=== PATIENT | male | born 1960 | race Caucasian/White ===

== ENCOUNTER 2016-12-16 11:50 | Inpatient (IN) | payer MEDICAID, OTHER ==
[~2016-12-16] VITALS: Ht 182.9 cm; Wt 67.7 kg
[2016-12-16 13:40] LABS: Basophils # (auto) 0.1 uL; Basophils % (auto) 0.5 % (0.0-2.0); DEFINITIVE VIEW TRANSMISSION; Eosinophils # (auto) 0 uL; Eosinophils % (auto) 0.2 % (0.0-7.0); Lymphocytes # (auto) 1.1 uL; Lymphocytes % (auto) 7.6 % (10.0-50.0); Mean Corpuscular Hemoglobin 33.4 pg (28.0-32.0); Mean Corpuscular Hgb Conc. 33.4 g/dL (32.0-36.0); Mean Corpuscular Volume 100.1 fL (80.0-100.0); Mean Platelet Volume 8.2 fL (7.4-10.4); Monocytes # (auto) 1.2 uL; Monocytes % (auto) 8.7 % (0.0-12.0); Neutrophils # (auto) 11.9 uL; Platelet Count (auto) 351 10^3/uL (140-450); Red Cell Distribution Width 13.9 % (11.6-16.0); SUSPECT VIEW TRANSMISSION; White Blood Cell 14.3 10^3/uL (4.4-10.8)
[2016-12-16 13:50] LABS: Albumin 2.9 g/dL (3.4-5.0); BUN/Creatinine Ratio 9.4; Bilirubin, Total 0.2 mg/dL (0.2-1.0); Calcium 8.1 mg/dL (8.5-10.1); Potassium 3.4 mmol/L (3.5-5.1); Total Protein 6.1 g/dL (6.4-8.2)
[2016-12-16 14:15] LABS: Hemoglobin 6.7 g/dL (13.5-17.5)
[2016-12-16 15:57] LABS: INR 0.98 (0.9-1.15); Partial Thromboplastin Time 23.5 sec (22.64-33.71); Prothrombin Time 10.1 sec (9.37-12.3)
[2016-12-16] MEDS: SODIUM CHLORIDE 0.9% 1,000 ML IV SCH ×2 (16:03→21:44)
[2016-12-16] MEDS ORDERED: MORPHINE SULF INJ 2 MG/ML SYRINGE 1ML IV PRN (16:15)
[2016-12-16] MEDS ORDERED: PANTOPRAZOLE SODIUM 40 MG/10 ML VIAL IV ONE (16:15)
[2016-12-16] MEDS ORDERED: NITROGLYCERIN 0.4 MG SL TAB SL PRN (16:15)
[2016-12-16 16:23] LABS: Amylase 23 U/L (25-115)
[2016-12-16] MEDS: LEVOFLOXACIN 500MG 100 ML IV SCH (16:45)
[2016-12-16 17:18] VITALS: BP 128/79
[2016-12-16 17:34] VITALS: BP 136/80
[2016-12-16] MEDS: metroNIDAZOLE 500MG/100ML 100 ML IV SCH (18:01)
[2016-12-16 20:00] VITALS: BP 117/77
[2016-12-16] MEDS ORDERED: TEMAZEPAM 15 MG CAP PO PRN (21:15)
[2016-12-16] MEDS ORDERED: ACETAMINOPHEN 500 MG TAB PO PRN (21:15)
[2016-12-16] MEDS ORDERED: HYDROcodone-ACET 5/325MG TAB PO PRN (21:15)
[2016-12-16] MEDS ORDERED: LORazepam 0.5 MG TAB PO PRN (21:15)
[2016-12-16] MEDS ORDERED: PROMETHAZINE HCL 25 MG/ML 1ML IV PRN (21:15)
[2016-12-16] MEDS ORDERED: THIAMINE HCL 100 MG/ML 2ML VIAL IV ONE (21:15)
[2016-12-17] MEDS: chlordiazePOXIDE HCL 5 MG CAP PO SCH ×5 (00:08→23:50)
[2016-12-17 01:17] LABS: Hematocrit 22.5 % (41.0-53.0); Hemoglobin 7.5 g/dL (13.5-17.5)
[2016-12-17] MEDS: MORPHINE SULF INJ 2 MG/ML SYRINGE 1ML IV PRN ×2 (01:55→06:59)
[2016-12-17] MEDS: metroNIDAZOLE 500MG/100ML 100 ML IV SCH ×3 (01:55→18:52)
[2016-12-17 07:30] VITALS: BP 118/68
[2016-12-17 07:45] VITALS: BP 111/72
[2016-12-17] MEDS: SODIUM CHLORIDE 0.9% 1,000 ML IV SCH ×3 (08:03→22:07)
[2016-12-17 08:54] LABS: Basophils # (auto) 0.1 uL; Basophils % (auto) 0.9 % (0.0-2.0); Eosinophils # (auto) 0.1 uL; Eosinophils % (auto) 1.2 % (0.0-7.0); Hematocrit 29.5 % (41.0-53.0); Hemoglobin 9.9 g/dL (13.5-17.5); Lymphocytes # (auto) 1.6 uL; Lymphocytes % (auto) 22.5 % (10.0-50.0); Mean Corpuscular Hemoglobin 31.1 pg (28.0-32.0); Mean Corpuscular Hgb Conc. 33.5 g/dL (32.0-36.0); Mean Corpuscular Volume 93.1 fL (80.0-100.0); Mean Platelet Volume 7.6 fL (7.4-10.4); Monocytes # (auto) 0.6 uL; Neutrophils # (auto) 4.7 uL; Neutrophils % (auto) 66.4 % (37.0-80.0); Platelet Count (auto) 296 10^3/uL (140-450); Red Cell Distribution Width 17.3 % (11.6-16.0); White Blood Cell 7.1 10^3/uL (4.4-10.8)
[2016-12-17 09:57] LABS: Albumin 2.7 g/dL (3.4-5.0); BUN/Creatinine Ratio 4.8; Bilirubin, Total 0.8 mg/dL (0.2-1.0); Calcium 8.2 mg/dL (8.5-10.1); Potassium 4.1 mmol/L (3.5-5.1); Total Protein 5.6 g/dL (6.4-8.2)
[2016-12-17] MEDS ORDERED: PANTOPRAZOLE SODIUM 40 MG/10 ML VIAL IV SCH (10:00)
[2016-12-17] MEDS: THIAMINE HCL 100 MG/ML 2ML VIAL IV SCH (10:37)
[2016-12-17] MEDS: LEVOFLOXACIN 500MG 100 ML IV SCH (10:38)
[2016-12-17] MEDS ORDERED: METO25TA62 (15:06)
[2016-12-17] MEDS ORDERED: NAP500T (15:06)
[2016-12-17] MEDS ORDERED: LORA2TAB10 (15:06)
[2016-12-17 21:20] LABS: Urine RBC None Seen /hpf (0 - 3)
[2016-12-17 21:34] LABS: Urine Bilirubin Negative (Negative); Urine Blood Negative /uL (Negative); Urine Color Colorless (Yellow); Urine Glucose Normal (Normal); Urine Ketone Negative (Negative); Urine Nitrite Negative (Negative); Urine Urobilinogen Normal (Negative); Urine pH 5.5 (5.0-8.0)
[2016-12-17] MEDS: PANTOPRAZOLE 40 MG TAB PO SCH (22:05)
[2016-12-18] VITALS (8 sets, daily range): BP systolic 98–120; BP diastolic 57–78
[2016-12-18] MEDS: metroNIDAZOLE 500MG/100ML 100 ML IV SCH ×3 (02:23→18:00)
[2016-12-18] MEDS: chlordiazePOXIDE HCL 5 MG CAP PO SCH ×3 (05:45→18:00)
[2016-12-18 06:18] LABS: Basophils # (auto) 0 uL; Basophils % (auto) 0.7 % (0.0-2.0); Eosinophils # (auto) 0.2 uL; Eosinophils % (auto) 2.6 % (0.0-7.0); Hematocrit 26.9 % (41.0-53.0); Hemoglobin 8.8 g/dL (13.5-17.5); Lymphocytes # (auto) 1.3 uL; Lymphocytes % (auto) 22.5 % (10.0-50.0); Mean Corpuscular Hemoglobin 30.9 pg (28.0-32.0); Mean Corpuscular Hgb Conc. 32.7 g/dL (32.0-36.0); Mean Corpuscular Volume 94.5 fL (80.0-100.0); Mean Platelet Volume 7.5 fL (7.4-10.4); Monocytes # (auto) 0.6 uL; Monocytes % (auto) 9.3 % (0.0-12.0); Neutrophils # (auto) 3.9 uL; Neutrophils % (auto) 64.9 % (37.0-80.0); Platelet Count (auto) 304 10^3/uL (140-450); Red Cell Distribution Width 17.8 % (11.6-16.0)
[2016-12-18 06:45] LABS: BUN/Creatinine Ratio 7.4; Calcium 7.3 mg/dL (8.5-10.1); Potassium 3.5 mmol/L (3.5-5.1)
[2016-12-18] MEDS: SODIUM CHLORIDE 0.9% 1,000 ML IV SCH ×2 (08:30→16:03)
[2016-12-18] MEDS: PANTOPRAZOLE 40 MG TAB PO SCH (10:00)
[2016-12-18] MEDS: THIAMINE HCL 100 MG/ML 2ML VIAL IV SCH (10:07)
[2016-12-18] MEDS: LEVOFLOXACIN 500MG 100 ML IV SCH (10:26)
[2016-12-18] MEDS ORDERED: LIDOCAINE VISCOUS 2% 15ML UD ONE (11:38)
[2016-12-18] MEDS ORDERED: SODIUM CHLORIDE LOCK 10 ML ONE (11:38)
[2016-12-18] MEDS ORDERED: fentaNYL CITRATE 100 MCG/2 ML VL ONE (11:38)
[2016-12-18] MEDS ORDERED: diphenhdrAMINE HCL 50 MG/1 ML VL ONE (11:38)
[2016-12-18] MEDS ORDERED: MIDAZOLAM HCL 5 MG/ML-1ML VIAL ONE (11:38)
== END 2016-12-18 19:12 | disposition home or self-care (01) | DRG 241 ==
LOC: ER 11:56 → TELE 11:57 → TELE-CENTR 12-18 12:59
PROVIDERS: ADMIT Internal Medicine; ATTEND Internal Medicine
PROC: 30233N1 Transfusion of Nonautologous Red Blood Cells into Peripheral Vein, Percutaneous Approach (ICD-10-PCS; 2016-12-16)
PROC: 0DJ08ZZ Inspection of Upper Intestinal Tract, Via Natural or Artificial Opening Endoscopic (ICD-10-PCS; principal; 2016-12-18 11:15)
DX: K29.71 Gastritis, unspecified, with bleeding (principal); S09.90XA Unspecified injury of head, initial encounter; L89.93 Pressure ulcer of unspecified site, stage 3; D50.0 Iron deficiency anemia secondary to blood loss (chronic); I10 Essential (primary) hypertension; F10.20 Alcohol dependence, uncomplicated; D72.829 Elevated white blood cell count, unspecified; G89.29 Other chronic pain; Z72.0 Tobacco use; Z80.9 Family history of malignant neoplasm, unspecified; F15.90 Other stimulant use, unspecified, uncomplicated; F41.9 Anxiety disorder, unspecified; Z60.2 Problems related to living alone; Z71.51 Drug abuse counseling and surveillance of drug abuser; Z71.6 Tobacco abuse counseling
CPT/HCPCS: 36415; 36430; 43235; 70486; 71010; 80048; 80053; 80061; 81001; 82150; 82378; 83690; 83735; 84100; 85014; 85018; 85025; 85045; 85049; 85610; 85652; 85730; 86141; 86850; 86900; 86901; 86920; 93005; 96365; 96375; 96376; C9113; J1956; J2250; J3490

== ENCOUNTER 2017-11-03 11:42 | Emergency (ER) | payer MEDICAID ==
[~2017-11-03] VITALS: Ht 167.6 cm; Wt 66.7 kg
[~2017-11-03 11:42] MED LIST: LORA2TAB10; METO25TA62
[2017-11-03 11:52] VITALS: BP 149/100
== END 2017-11-03 12:55 | disposition home or self-care (01) ==
LOC: ER 11:42 → EDBD 11:42 → ER 12:55
DX: S01.112A Laceration without foreign body of left eyelid and periocular area, initial encounter (principal); I10 Essential (primary) hypertension; Z79.899 Other long term (current) drug therapy; Y04.0XXA Assault by unarmed brawl or fight, initial encounter; Y93.89 Activity, other specified; Y99.8 Other external cause status; Y92.89 Other specified places as the place of occurrence of the external cause
CPT/HCPCS: 12011